=== PATIENT | male | born 1965 | race Caucasian/White ===

== ENCOUNTER → 2021-02-26 | Outpatient (CLI) | payer BC, OTHER ==
[~2021-02-26] MED LIST: ASPIRIN EC81 MG PO; B12 PO; BENICAR HCT 401 EAC1 PO; CO Q-10100 MG PO; CRESTOR20 MG PO; IBUPROFEN800 MG PO; NITROGLYCERIN0.4 MG SL; NORCO 5-325 TA1 EACH PO; NORVASC10 MG PO; PERCOCET 10-321 EACH PO; PROTONIX40 MG PO; VIT D PO; VIT D3 PO
== END ==
LOC: NM 08:42
DX: R06.02 Shortness of breath (principal); I10 Essential (primary) hypertension; R68.89 Other general symptoms and signs; M47.816 Spondylosis without myelopathy or radiculopathy, lumbar region
CPT/HCPCS: ECHO; 71046; 72100; 74018; 78452; 93017; 93306; A9502; J2785

== ENCOUNTER → 2021-04-18 | Outpatient (CLI) | payer BC, OTHER | LOC: EXRD 13:45 | DX: E04.1 Nontoxic single thyroid nodule (principal); R13.10 Dysphagia, unspecified | CPT/HCPCS: 76536 ==

== ENCOUNTER → 2021-05-01 | Outpatient (CLI) | payer BC, OTHER | LOC: DTC 15:00 | DX: E11.69 Type 2 diabetes mellitus with other specified complication (principal); E78.5 Hyperlipidemia, unspecified | CPT/HCPCS: G0108 ==

== ENCOUNTER → 2021-07-17 | Outpatient (CLI) | payer BC | LOC: HEART 5 14:48 | DX: R06.02 Shortness of breath (principal) | CPT/HCPCS: 94060; 94729 ==

== ENCOUNTER → 2022-01-07 | Outpatient (CLI) | payer BC ==
[~2022-01-07] MED LIST changes: +ASPIRIN EC325 MG PO; -ASPIRIN EC81 MG PO; +AUGMENTIN 875-1 EACH PO; +AZITHROMYCIN500 MG PO; +CARVEDILOL25 MG PO; +CLONIDINE HCL0.1 MG PO; +DECADRON6 MG PO; +FINASTERIDE5 MG PO; +FLOMAX 0.4 MG0.4 MG PO; +FLONASE 0.05% N16 GM; +GLUCOPHAGE 500500 MG PO; +IPRAT-ALBUT 0.5-3 ML INH; +ISOSORBIDE MONO60 MG PO; +LEVOCETIRIZINE D5 MG PO; +MONTELUKAST SOD10 MG PO; +MUCINEX600 MG PO; +PRAVASTATIN SOD40 MG PO; +PREDNISONE20 MG PO; +PROAIR HFA8.5 GM INH; +TESTOSTERO200 MG/1 M IM; +VASCEPA1 GM PO; +VITAMIN B-121000 MCG PO; +VITAMIN D21250 MCG PO
== END ==
LOC: KOH-I 12-23 13:30
DX: F17.210 Nicotine dependence, cigarettes, uncomplicated (principal); R91.1 Solitary pulmonary nodule
CPT/HCPCS: 71271

== ENCOUNTER → 2022-02-03 | Outpatient (CLI) | payer BC | LOC: EXRD 09:43 → HEART 5 09:43 | DX: J84.10 Pulmonary fibrosis, unspecified (principal); R91.8 Other nonspecific abnormal finding of lung field; R94.2 Abnormal results of pulmonary function studies | CPT/HCPCS: 71046; 94060; 94729 ==

== ENCOUNTER → 2022-03-29 | Outpatient (CLI) | payer BC ==
[2022-03-29 12:13] LABS: HEMOGLOBIN 15.2 gm/dl (14.0-17.5); RED BLOOD COUNT 4.82 M/UL (4.20-5.50); WHITE BLOOD COUNT 9.2 K/UL (4.5-11.0)
[2022-03-29 12:38] LABS: BUN/CREATININE RATIO 11 (0-10)
[2022-03-31 08:09] LABS: VITAMIN D, 25-HYDROXY 53.6 ng/mL (30.0-100.0)
[2022-03-31 17:10] LABS: ANTISTREPTOLYSIN O AB 129.5 IU/mL (0.0-200.0); RHEUMATOID ARTHRITIS FACTOR <10.0 IU/mL (<14.0)
[2022-04-01 10:17] LABS: CREATININE, URINE 60.2 mg/dL (Not Estab.)
== END ==
LOC: LAB 10:59
PROVIDERS: Nurse Practitioner Family
DX: M25.50 Pain in unspecified joint (principal); E11.9 Type 2 diabetes mellitus without complications; J30.9 Allergic rhinitis, unspecified; I25.10 Atherosclerotic heart disease of native coronary artery without angina pectoris; I10 Essential (primary) hypertension; E78.5 Hyperlipidemia, unspecified; R10.13 Epigastric pain; R53.83 Other fatigue; K76.0 Fatty (change of) liver, not elsewhere classified; E53.8 Deficiency of other specified B group vitamins; E55.9 Vitamin D deficiency, unspecified; Z00.00 Encounter for general adult medical examination without abnormal findings
CPT/HCPCS: 80053; 80061; 82043; 82570; 82607; 83036; 84439; 84443; 84550; 85025; 85652; 86038; 86060; 86140; 86141; 86431; 86617

== ENCOUNTER → 2022-05-26 | Outpatient (CLI) | payer BC | LOC: EXRD 13:21 | DX: R06.02 Shortness of breath (principal) | CPT/HCPCS: 71046; 94060; 94729 ==

== ENCOUNTER → 2022-06-10 | Outpatient (CLI) | payer BC, OTHER | LOC: EXRD 09:39 | DX: M54.50 Low back pain, unspecified (principal); R07.9 Chest pain, unspecified; R07.81 Pleurodynia; M47.816 Spondylosis without myelopathy or radiculopathy, lumbar region | CPT/HCPCS: 71101; 72100 ==

== ENCOUNTER → 2022-07-29 | Outpatient (CLI) | payer OTHER | LOC: KOH-I 14:10 | DX: R42 Dizziness and giddiness (principal); R41.3 Other amnesia; R51.9 Headache, unspecified; R26.81 Unsteadiness on feet | CPT/HCPCS: 70551 ==